=== PATIENT | male | born 1955 | race Caucasian/White ===

== ENCOUNTER 2017-08-26 18:00 | Inpatient (IN) | payer MEDICAID ==
[~2017-08-26] VITALS: Ht 185.4 cm; Wt 78.6 kg
[~2017-08-26 18:00] MED LIST: AMLO5TAB2 PO; DOXA2TAB9 PO; HYDR-3343 PO; LEVO50TA PO; LISI-170 PO; METO50TA82 PO
[2017-08-26] MEDS ORDERED: SODIUM CHLORIDE 0.9% 1,000ML IVBOLUS ONE (18:30)
[2017-08-26] MEDS ORDERED: SODIUM CHLORIDE FLUSH 10ML SYR IVF ONE (18:30)
[2017-08-26 18:37] LABS: HEMATOCRIT 48.3 % (39.2-51.8); HEMOGLOBIN 16.4 g/dL (13.7-18.0); WHITE BLOOD COUNT 8.2 x10^3/uL (3.4-10)
[2017-08-26 18:48] LABS: ASPARTATE AMINO TRANSFERASE 14 U/L (15-37); BLOOD UREA NITROGEN 18 mg/dL (7-18)
[2017-08-26 18:54] LABS: IS PT STATUS REG ER OR PRE ER? YES
[2017-08-26] MEDS ORDERED: OMNIPAQUE 350 MG/ML, 100ML BOTTLE ONE (19:22)
[2017-08-26] MEDS ORDERED: morphine SULFATE 10 MG/ML, 1ML IVPush PRN (21:00)
[2017-08-26] MEDS ORDERED: ENOXAPARIN 40 MG/0.4 ML SQ SCH (21:00)
[2017-08-26] MEDS ORDERED: ONDANSETRON 2MG/ML, 2ML IVPush PRN (21:00)
[2017-08-26] MEDS ORDERED: ACETAMINOPHEN 325 MG TABLET PO PRN (21:00)
[2017-08-26] MEDS ORDERED: AMLODIPINE 5 MG TABLET PO SCH (21:00)
[2017-08-26 21:41] VITALS: BP 138/75
[2017-08-26] MEDS: LISINOPRIL 20 MG TABLET PO SCH (22:38)
[2017-08-26] MEDS ORDERED: ALBUTEROL SULFATE 2.5 MG/3 ML NPPB PRN (23:30)
[2017-08-27 01:11] VITALS: BP 107/60
[2017-08-27 01:11] LABS: IS PT STATUS REG ER OR PRE ER? NO
[2017-08-27] MEDS: LEVOTHYROXINE 50 MCG TABLET PO SCH (05:43)
[2017-08-27 06:11] LABS: HEMATOCRIT 43.5 % (39.2-51.8); HEMOGLOBIN 14.8 g/dL (13.7-18.0); WHITE BLOOD COUNT 7.5 x10^3/uL (3.4-10)
[2017-08-27 06:27] LABS: BLOOD UREA NITROGEN 18 mg/dL (7-18)
[2017-08-27 06:30] LABS: IS PT STATUS REG ER OR PRE ER? NO
[2017-08-27 07:35] VITALS: BP 112/68
[2017-08-27] MEDS: AMLODIPINE 5 MG TABLET PO SCH (08:07)
[2017-08-27] MEDS: LISINOPRIL 20 MG TABLET PO SCH ×2 (08:07→19:59)
[2017-08-27 12:50] VITALS: BP 107/62
[2017-08-27 19:33] VITALS: BP 103/53
[2017-08-28 00:56] VITALS: BP 105/52
[2017-08-28] MEDS: LEVOTHYROXINE 50 MCG TABLET PO SCH (06:07)
[2017-08-28] MEDS ORDERED: METOPROLOL TARTRATE 50 MG TABLET ONE (08:10)
[2017-08-28 08:15] VITALS: BP 111/51
[2017-08-28] MEDS: AMLODIPINE 5 MG TABLET PO SCH (08:19)
[2017-08-28] MEDS: LISINOPRIL 20 MG TABLET PO SCH (08:19)
[2017-08-28] MEDS ORDERED: METOPROLOL TARTRATE 25 MG TABLET PO SCH (08:30)
[2017-08-28] MEDS ORDERED: REGADENOSON 0.4 MG/5 ML SYRINGE ONE (11:50)
[2017-08-28 15:37] VITALS: BP 128/72
[2017-08-28] MEDS ORDERED: METO25TA35 PO (15:50)
== END 2017-08-28 16:41 | disposition home or self-care (01) | DRG 313 ==
LOC: ED 20:25 → EDIP 20:52 → INTOOBSV 20:52 → 5SO 21:38 → OBSVTOIN 08-27 15:46
PROVIDERS: ADMIT Internal Medicine; ATTEND Internal Medicine
DX: R07.9 Chest pain, unspecified (principal); I71.01 Dissection of thoracic aorta; I11.9 Hypertensive heart disease without heart failure; I71.9 Aortic aneurysm of unspecified site, without rupture; Z83.3 Family history of diabetes mellitus; Z87.891 Personal history of nicotine dependence
CPT/HCPCS: 36415; 71275; 74175; 78452; 80048; 80053; 84439; 84443; 84484; 85025; 87324; 93005; 93017; 93306; 94640; 96360; 96361; G0378; J2785; J7613; Q9967; A9502; C9898; J7030

== ENCOUNTER 2019-05-29 08:32 | Outpatient (CLI) | payer MEDICAID, MEDICARE | END 2019-05-29 23:59 | disposition home or self-care (01) | LOC: CFH 08:32 | PROVIDERS: ATTEND Internal Medicine Cardiovascular Disease | DX: I71.4 Abdominal aortic aneurysm, without rupture (principal) | CPT/HCPCS: 93978 ==